=== PATIENT | female | born 1990 | race Hispanic/Latino ===

== ENCOUNTER 2016-09-30 09:00 | Inpatient (IN) | payer OTHER ==
[~2016-09-30] VITALS: Ht 167.6 cm; Wt 96.2 kg
[2016-09-30] MEDS ORDERED: FERRALET 90 TA1 EACH PO (09:53)
[2016-09-30] MEDS ORDERED: PRENATAL TABLE1 EAC2 PO (09:53)
[2016-09-30 10:02] LABS: ABSOLUTE BASOPHIL COUNT 0 /CUMM (0.0-0.2); ABSOLUTE EOSINOPHIL COUNT 0.2 /CUMM (0.0-0.7); ABSOLUTE GRANULOCYTE CT 4.8 /CUMM (1.4-6.5); ABSOLUTE LYMPH COUNT 1.2 /CUMM (1.2-3.4); ABSOLUTE MONOCYTE COUNT 0.3 /CUMM (0.10-0.60); BASOPHIL % 0.4 % (0.0-2.0); EOSINOPHIL % 2.9 % (0-5); GRANULOCYTE % 73.8 % (42.2-75.2); HEMATOCRIT 36.8 % (37-47); MEAN CORPUSCULAR HGB 29.6 PG (27.0-31.0); MEAN CORPUSCULAR HGB CONC 34.1 G/DL (33.0-37.0); MEAN CORPUSCULAR VOLUME 86.8 FL (81.0-99.0); MEAN PLATELET VOLUME 8.9 FL (7.4-10.4); PLATELET COUNT 197 /CUMM (130-400); RED BLOOD CELL CT 4.24 /CUMM (4.20-5.40); WHITE BLOOD CELL COUNT 6.5 /CUMM (4.8-10.8)
--- NOTE | 2016-09-30 17:25 | PN- Obstetrical ---
Subjective Subjective: NO COMPLAINTS Objective Last 24 Hrs of Vital Signs/I&O Intake & Output 09/30 1600 09/30 0800 05 0000 Intake Total Output Total Balance Patient 212 lb Weight Physical Exam: PE PLEASANT HF ABD SOFT [id number] Obstetric Exam Dilation (cm): 3 Effacement (%): 80 Station: 0 Membranes: intact Fluid: unknown Multiple Gestation? No Contractions: Q 3MINUTES Assessment/Plan Assessment/Plan 41 WEEK PLAN D/C PI RESUME INDUCTION IN AM
--- NOTE | 2016-10-01 11:17 | PN- Obstetrical ---
Subjective Subjective: VSS Objective Last 24 Hrs of Vital Signs/I&O PER CHART Physical Exam: ABD SOFT NT FUNDUS [id number] Obstetric Exam Dilation (cm): 3 Effacement (%): 90 Station: 0 Membranes: AROM Fluid: light meconium Multiple Gestation? No Contractions: Q 3 MINUTES Assessment/Plan Assessment/Plan ASSESS 41 WEEK PLAN PITOCIN
--- NOTE | 2016-10-01 14:00 | PN- Obstetrical ---
Subjective Subjective: C/O PAIN Objective Last 24 Hrs of Vital Signs/I&O PER CHART Physical Exam: ABD SOFT BETWEEN CTX EXT -EDEMA Obstetric Exam Dilation (cm): 6 Effacement (%): 90 Station: 0 Membranes: AROM Fluid: clear Multiple Gestation? No Contractions: Q 3 MINUTES Assessment/Plan Assessment/Plan ASSESS 41WEEKS PLAN CONT PITOCIN
--- NOTE | 2016-10-01 21:25 | Labor & Delivery Summary ---
Delivery Summary Vaginal Delivery: Vaginal: vertex Episiotomy/Lacerations: Type: RIGHT MEDIOLATERAL Repair: 30 Anesthesia: LOCAL MARCAINE AND EPIDURAL Placenta: Placenta: spontanteous, normal, 3 vessel Anesthesia: block Additional Comments: OVER RIGHT MEDIOLATERAL SUCTIONED WITH BULB .PLACENTA BY CCT INTACT CULTURES .RMLE REPAIRED IN LAYERS.
[2016-10-02] VITALS: BP 118/57
[2016-10-02 09:45] LABS: ABSOLUTE BASOPHIL COUNT 0 /CUMM (0.0-0.2); ABSOLUTE EOSINOPHIL COUNT 0.1 /CUMM (0.0-0.7); ABSOLUTE GRANULOCYTE CT 10.1 /CUMM (1.4-6.5); ABSOLUTE LYMPH COUNT 1.1 /CUMM (1.2-3.4); ABSOLUTE MONOCYTE COUNT 0.8 /CUMM (0.10-0.60); BASOPHIL % 0 % (0.0-2.0); EOSINOPHIL % 0.6 % (0-5); RED BLOOD CELL CT 3.66 /CUMM (4.20-5.40)
[2016-10-02 09:48] LABS: MEAN CORPUSCULAR HGB 29.2 PG (27.0-31.0); MEAN CORPUSCULAR HGB CONC 33.5 G/DL (33.0-37.0); MEAN PLATELET VOLUME 8.9 FL (7.4-10.4); PLATELET COUNT 177 /CUMM (130-400)
[2016-10-02 09:49] LABS: HEMATOCRIT 31.8 % (37-47)
--- NOTE | 2016-10-02 13:24 | PN- Post Delivery/GYN ---
Subjective Subjective: NO COMPLAINTS Objective Last 24 Hrs of Vital Signs/I&O Vital Signs Date Time Temp Pulse Resp B/P B/P Pulse O2 O2 Flow FiO2 Mean Ox Delivery Rate 10/02 0000 118/57 10/01 2330 99.7 Physical Exam: PLEASANT HF IN NAD ABD SOFT NT FUNDUS FIRM NT LOCHIA MINIMAL Assessment/Plan Assessment/Plan ASSESS S/P PLAN CONT PPC
[2016-10-03] MEDS ORDERED: IBUPROFEN800 M1 PO (08:47)
== END 2016-10-03 12:30 | DRG 560 ==
LOC: GNO 09:00
PROVIDERS: ADMIT Specialist
PROC: 3E033VJ Introduction of Other Hormone into Peripheral Vein, Percutaneous Approach (ICD-10-PCS; 2016-09-30)
PROC: 10E0XZZ Delivery of Products of Conception, External Approach (ICD-10-PCS; principal; 2016-10-01)
PROC: 0W8NXZZ Division of Female Perineum, External Approach (ICD-10-PCS; principal; 2016-10-01)
DX: O48.0 Post-term pregnancy (principal); Z3A.41 41 weeks gestation of pregnancy; Z37.0 Single live birth; O76 Abnormality in fetal heart rate and rhythm complicating labor and delivery; O75.2 Pyrexia during labor, not elsewhere classified
CPT/HCPCS: 87070; 87075; 87184; 87205; GNOP; GNOS; 36415; 81001; 87071; 87086; 87147; 88307; J0131; J0595; J1050; J7120